=== PATIENT | male | born 1980 | race Caucasian/White ===

== ENCOUNTER 2018-06-03 09:56 | Emergency (ER) | payer SELFPAY ==
[~2018-06-03] VITALS: Ht 167.6 cm; Wt 88.6 kg
[2018-06-03 10:03] VITALS: TEMP 98.2
[2018-06-03] MEDS ORDERED: NORCO 325 MG-7.1 TAB PO (11:00)
[2018-06-03] MEDS ORDERED: CEPHALEXIN500 M1 PO (11:00)
[2018-06-03 11:06] VITALS: BP 130/72; PULSE 82
== END 2018-06-03 11:07 | disposition home or self-care (01) ==
LOC: COL.ER 09:56
DX: S82.202A Unspecified fracture of shaft of left tibia, initial encounter for closed fracture (principal); Z23 Encounter for immunization; W29.4XXA Contact with nail gun, initial encounter; Y92.009 Unspecified place in unspecified non-institutional (private) residence as the place of occurrence of the external cause